=== PATIENT | male | born 1985 | race Caucasian/White ===

== ENCOUNTER 2022-04-02 18:34 | Emergency (ER) | payer OTHER ==
[~2022-04-02] VITALS: Ht 193 cm; Wt 98.4 kg
[2022-04-02 20:50] VITALS: BP 140/89
== END 2022-04-02 20:52 | disposition home or self-care (01) ==
LOC: ER 18:37
DX: S63.591A Other specified sprain of right wrist, initial encounter (principal); V29.9XXA Motorcycle rider (driver) (passenger) injured in unspecified traffic accident, initial encounter; Y92.488 Other paved roadways as the place of occurrence of the external cause
CPT/HCPCS: 99283

== ENCOUNTER 2022-04-18 18:07 | Emergency (ER) | payer OTHER ==
[~2022-04-18] VITALS: Ht 185.4 cm; Wt 99.8 kg
[2022-04-18] MEDS ORDERED: ACETAMINOPHEN500 MG PO (18:26)
[2022-04-18] MEDS ORDERED: IBUPROFEN200 MG PO (18:26)
== END 2022-04-18 18:47 | disposition home or self-care (01) ==
LOC: FSED 18:20
DX: S63.591A Other specified sprain of right wrist, initial encounter (principal); W01.0XXA Fall on same level from slipping, tripping and stumbling without subsequent striking against object, initial encounter; Y93.01 Activity, walking, marching and hiking; Y92.89 Other specified places as the place of occurrence of the external cause
CPT/HCPCS: 99283

== ENCOUNTER 2022-05-16 17:49 | Emergency (ER) | payer OTHER ==
[~2022-05-16] VITALS: Ht 193 cm; Wt 98.4 kg
[~2022-05-16 17:49] MED LIST: ACETAMINOPHEN500 MG PO; IBUPROFEN200 MG PO
[2022-05-16] MEDS ORDERED: IBUPROFEN 600 MG TAB PO STA (18:30)
[2022-05-16] MEDS ORDERED: AMOXICILLIN500 MG PO (18:46)
[2022-05-16] MEDS ORDERED: PAXLOVID CO-PA1 EACH PO (18:48)
== END 2022-05-16 19:04 | disposition home or self-care (01) ==
LOC: FSED 18:00
DX: B34.9 Viral infection, unspecified (principal); J02.9 Acute pharyngitis, unspecified
CPT/HCPCS: 83518; 99283